=== PATIENT | male | born 1965 | race Caucasian/White ===

== ENCOUNTER 2017-08-02 05:49 | Day surgery (SDC) | payer OTHER ==
[2017-08-02] VITALS (7 sets, daily range): BP systolic 107–121; BP diastolic 70–83; PULSE 54–60; RESP 16–18; Ht 185.4 cm; Wt 85.5 kg
[~2017-08-02] VITALS: Ht 185.4 cm; Wt 85.5 kg
[2017-08-02] MEDS ORDERED: SOD CHLORIDE 0.9% 1,000 ML IV SCH (06:00)
[2017-08-02] MEDS ORDERED: CEFAZOLIN 2 GM/50 ML (PMX) 50 ML IVPB SCH (06:00)
[2017-08-02] MEDS ORDERED: ELVI1TAB PO (06:54)
[2017-08-02] MEDS ORDERED: TRAZ50TA18 PO (06:55)
[2017-08-02] MEDS ORDERED: ESCI10TA PO (06:55)
[2017-08-02] MEDS ORDERED: PROPOFOL 200 MG INJ ONE (07:00)
--- NOTE | 2017-08-02 07:09 | RADRPT ---
PROCEDURE: Chest. CLINICAL INDICATION: Preop evaluation. TECHNIQUE: Single frontal view of the chest was obtained. COMPARISON: None. FINDINGS: The cardiac silhouette is within normal limits. The aortic arch is unremarkable. There is no focal consolidation, vascular congestion or pleural effusion. There is no pneumothorax. IMPRESSION: No evidence for active cardiopulmonary disease. .Chris Ruth MD, MD Date Time Electronically viewed and signed by .Chris Ruth MD, on 08/02/2017 07:09 .T/
[2017-08-02] MEDS ORDERED: BUPIVACAINE 0.25% (MPF) 30 ML INJ ONE (08:14)
[2017-08-02] MEDS ORDERED: POLYMYXIN/BACITRACIN 1L IRRIG ONE (08:29)
[2017-08-02] MEDS ORDERED: LIDOCAINE 2% (SDV) 5 ML INJ ONE (08:43)
[2017-08-02] MEDS ORDERED: PROPOFOL 20 ML ONE (08:43)
[2017-08-02] MEDS ORDERED: MIDAZOLAM 1 MG/ML 2 ML INJ ONE (08:43)
[2017-08-02] MEDS ORDERED: ROPIVACAINE 0.2% 20 ML VIAL ONE (08:57)
[2017-08-02] MEDS ORDERED: CEFAZOLIN 1 GM INJ ONE (09:04)
[2017-08-02] MEDS ORDERED: FENTAnyl 50 MCG/ML VIAL ONE (09:08)
[2017-08-02] MEDS ORDERED: KETOROLAC 30 MG INJ ONE (09:08)
[2017-08-02] MEDS ORDERED: DEXAMETHASONE 4 MG/ML 1 ML INJ ONE (09:09)
[2017-08-02] MEDS ORDERED: ONDANSETRON 4 MG INJ ONE (09:09)
--- NOTE | 2017-08-02 09:45 | OPR ---
Date/Time of Note Date/Time of Note DATE: 08/02/17 TIME: 09:43 Operative Report Procedure Date: Aug 02, 2017 Preoperative Diagnosis incarcerated left inguinal hernia Postoperative Diagnosis same Operation/Procedure Performed open incarcerated left inguinal hernia repair with medium ultrapro hernia system mesh Surgeon see signature line Signal Processing Engineer none Anesthesia Type: general Estimated Blood Loss: 0 - 10 ml's Transfusion none Specimen none Grafts/Implants none Complications none Pt Condition Post Procedure: stable Indications This is a 51-year-old male with incarcerated left inguinal hernia. He requests surgical repair. Risks alternatives benefits and percent were discussed the patient. Patient's best understanding consents to the operation. Procedure Description Patient taken to the OR and prepped and draped in usual sterile fashion. Surgical timeout was performed. IV antibiotics given. Left inguinal oblique incision was made with a 10 blade. Dissection cautery was carried onto the external oblique fascia. The extremity fascia is opened with a 15 blade. This incision is extended medially inferiorly lateral superiorly with Metzenbaum scissors. Cord structures identified and encircled with a Amaury drain. Incarcerated indirect inguinal hernia is reduced manually. The distal portion of the ultrapure hernia system mesh is secured in place with a running 0 Prolene from the pubic tubercle along the shelving edge of inguinal ligament. Superiorly to the intra-oblique disc is secured with interrupted 3-0 Vicryl. Onlay mesh is secured in a similar fashion with a running 0 Prolene from the pubic tubercle along the shelving edge of inguinal ligament. Structure creating reapproximated around the cord structures to re-create the inguinal ring with interrupted 0 Prolene. Onlay mesh was also secured to the intra- oblique with interrupted 3-0 Vicryl. Externally fascia is closed with running 3 -0 Vicryl. Kj's fascia was closed interrupted 3-0 Vicryl. Skin was closed using skin abby. Dressings were applied. Giselle HOWARD Aug 02, 2017 09:45
[2017-08-02] MEDS ORDERED: HYDROmorphONE (0.2 MG/ML) 10ML SYG IV PRN ×2 (10:00)
[2017-08-02] MEDS ORDERED: HYDROCODONE/APAP (5/325) TAB PO ONE (10:00)
[2017-08-02] MEDS ORDERED: MEPERIDINE 25 MG INJ IV PRN (10:00)
--- NOTE | 2017-08-03 14:08 | RADRPT ---
Vent Rate: 47 bpm RR Interval: 0 msec [place] Interval: 174 msec QRS Duration: 90 msec QT Interval: 520 msec QTC Interval: 460 msec P-R-T [place]: 38 - 60 - 35 degrees Marked sinus bradycardia Abnormal ECG Electronically Signed By: Joseph Anderson [id number]
--- NOTE | 2017-08-03 14:08 | RADRPT ---
Vent Rate: 47 bpm RR Interval: 0 msec IN Interval: 174 msec QRS Duration: 90 msec QT Interval: 520 msec QTC Interval: 460 msec P-R-T [place]: 38 - 60 - 35 degrees Marked sinus bradycardia Abnormal ECG Electronically Signed By: Joseph Anderson [id number]
--- NOTE | 2017-08-03 14:08 | RADRPT ---
Vent Rate: 47 bpm RR Interval: 0 msec TN Interval: 174 msec QRS Duration: 90 msec QT Interval: 520 msec QTC Interval: 460 msec P-R-T [place]: 38 - 60 - 35 degrees Marked sinus bradycardia Abnormal ECG Electronically Signed By: Joseph Anderson [id number]
== END 2017-08-02 11:19 | disposition home or self-care (01) ==
LOC: SDS 05:49
PROVIDERS: ATTEND Surgery
DX: K40.90 Unilateral inguinal hernia, without obstruction or gangrene, not specified as recurrent (principal)
CPT/HCPCS: 49507; 71010; 93005; C1781; J0690; J1100; J1885; J2250; J2405; J2795; J3010; Z7512; Z7610